=== PATIENT | male | born 1955 | race Caucasian/White ===

== ENCOUNTER 2018-01-02 10:13 | Emergency (ER) | payer SELFPAY ==
[2018-01-02] MEDS: fentaNYL PF VIAL 100 MCG/2 ML VIAL IM (11:05)
[2018-01-02] MEDS: diazePAM 5 MG TABLET PO (11:06)
== END 2018-01-02 11:41 | disposition home or self-care (01) ==
LOC: ER 10:13
DX: G89.29 Other chronic pain (principal); M54.2 Cervicalgia; K21.9 Gastro-esophageal reflux disease without esophagitis
CPT/HCPCS: 96372; 99283; J3010